=== PATIENT | male | born 1970 | race Caucasian/White ===

== ENCOUNTER 2017-01-29 09:09 | Emergency (ER) | payer BC ==
--- NOTE | 2017-01-29 09:26 | EDM.PDOC ---
ED HPI GENERAL MEDICAL PROBLEM - General Chief Complaint: Genitourinary Problem Stated Complaint: STD Time Seen by Provider: 01/29/17 09:11 Source of Information: Reports: Patient History Limitations: Reports: No Limitations - History of Present Illness INITIAL COMMENTS - FREE TEXT/NARRATIVE: HISTORY AND PHYSICAL: History of present illness: [46-year-old male presents to the emergency department complaining of penile drainage. Patient has been sexually active recently without protection. He is now proceeding some discomfort with urination and a purulent drainage. Denies testicular pain or scrotal swelling. No groin pain bilaterally and no pain behind the scrotum. No fevers chills sweats or shaking chills. Patient has no joint pain or other complaints Review of systems: As per history of present illness and below otherwise all systems reviewed and negative. Past medical history: As per history of present illness and as reviewed below otherwise noncontributory. Surgical history: As per history of present illness and as reviewed below otherwise noncontributory. Social history: No reported history of drug or alcohol abuse. Family history: As per history of present illness and as reviewed below otherwise noncontributory. Physical exam: HEENT: Normocephalic, atraumatic, pupils normal and symmetrical, supple neck, no meningismus, normal color Lungs: Normal and symmetrical chest wall excursion bilateral with no tachypnea or increased work of breathing, grossly normal chest exam Heart: No tachycardia in triage Abdomen: Normal-appearing, nondistended, no visible mass or asymmetry Pelvis: Normal-appearing Genitourinary: Normal-appearing penis and scrotum. Normal scrotum and contents with no mass or swelling. No inguinal adenopathy. Nontender perineum. Small amount of purulent discharge from meatus. No suprapubic tenderness. No CVA tenderness Rectal exam: Deferred Extremities: Atraumatic, normal use and range of motion, no visible evidence of gross neurovascular compromise Neuro: Awake, alert, oriented. Normal and appropriate mental status. Cranial nerves grossly unremarkable. Motor function normal. Nonfocal neurologic exam. Diagnostics: [] Therapeutics: [Rocephin IM and Zithromax by mouth] Impression: [STD] Plan: [Signs and symptoms consistent with uncomplicated STD in an adult male. No systemic symptoms. Treatment administered. Patient aware to follow-up with health department for reevaluation and further STD testing including syphilis and HIV as needed. Use barrier protection and follow-up with his PCP. No further workup or treatment indicated at this time patient agrees with outpatient follow-up and Strict return precautions given] Definitive disposition and diagnosis as appropriate pending reevaluation and review of above. scrotum Pain Score (Numeric/FACES): 1 - Related Data Allergies Allergy/AdvReac Type Severity Reaction Status Date / Time NSAIDS (Non-Steroidal Allergy Facial Verified 01/29/17 09:24 Anti-Inflamma Swelling Home Meds: Home Meds . [No Known Home Meds] 07/09/16 [History] Past Medical History Cardiovascular History: Reports: Hypertension Musculoskeletal History: Reports: Back Pain, Chronic, Fracture, Other (See Below ) Other Musculoskeletal History: hx bulging disc in back - Past Surgical History Musculoskeletal Surgical History: Reports: Other (See Below) Social & Family History - Family History Cardiac: Reports: [place] - Tobacco Use Smoking Status *Q: Never Smoker Second Hand Smoke Exposure: No - Recreational Drug Use Recreational Drug Use: No ED ROS GENERAL - Review of Systems Review Of Systems: See Below (History of present illness) ED EXAM, GENERAL - Physical Exam Exam: See Below (History of present illness) Course - Vital Signs Last Recorded V/S: Last Vital Signs Temp 36.2 C 01/29/17 09:25 Pulse 90 01/29/17 10:52 Resp 18 01/29/17 10:52 BP 165/100 H 01/29/17 10:52 Pulse Ox 95 01/29/17 10:52 - Orders/Labs/Meds Meds: Medications Discontinued Medications Generic Name Dose Route Start Last Admin Trade Name Makenna PRN Reason Stop Dose Admin Azithromycin 1,000 mg 01/29/17 09:59 01/29/17 10:10 Zithromax PO 01/29/17 10:00 1,000 mg Q24H ONE Administration Ceftriaxone Sodium 250 mg/ 1 mls @ 1 mls/sec 01/29/17 10:00 01/29/17 10:09 Lidocaine HCl IM 01/29/17 10:01 1 mls/sec ONETIME ONE Administration Departure - Departure Time of Disposition: 10:44 Disposition: Home, Self-Care 01 Condition: Good Clinical Impression: STD (male), Urethritis - Discharge Information Instructions: Sexually Transmitted Disease, [id number] Referrals: PCP,None [Primary Care Provider] - Forms: ED Department Discharge Additional Instructions: Having a penile discharge after having unprotected sex indicates that you have a sexually transmitted disease. You've been treated completely for gonorrhea and chlamydia. Follow-up with the health department for any further testing such as HIV or syphilis. If you're going to be sexually active use barrier protection such as a condom. This is not a guarantee of protection but it is the best protection possible for sexually active person. It still possible to have condom failure or to get herpes or genital warts from skin contact in the genital area. Notify any partners that they need to be treated as well and be careful not to be sexually active with him prior to them being appropriately treated also. Follow-up with your doctor in 2 days and return immediately for new severe or worsening symptoms
[2017-01-29] MEDS ORDERED: Azithromycin 250 MG Tab PO ONE (09:59)
[2017-01-29] MEDS ORDERED: cefTRIAXone 250 MG in Lidocaine 1% 1 ML IM ONE (10:00)
[2017-01-29 10:54] VITALS: BP 165/100
== END 2017-01-29 10:52 | disposition home or self-care (01) ==
LOC: MW.ED 09:09
DX: A64 Unspecified sexually transmitted disease (principal); N34.2 Other urethritis; I10 Essential (primary) hypertension; Z88.8 Allergy status to other drugs, medicaments and biological substances
CPT/HCPCS: 96372; 99283; A9270; J0696; 99282

== ENCOUNTER 2018-01-19 10:48 | Emergency (ER) | payer SELFPAY ==
--- NOTE | 2018-01-19 12:14 | EDM.PDOC ---
ED HPI GENERAL MEDICAL PROBLEM - General Chief Complaint: Gastrointestinal Problem Stated Complaint: ANAL BLEEDING Time Seen by Provider: 01/19/18 11:51 Source of Information: Reports: Patient History Limitations: Reports: No Limitations - History of Present Illness INITIAL COMMENTS - FREE TEXT/NARRATIVE: History of present illness: []Patient has a bleeding hemorrhoid. He complains of minimal pain, no abdominal pain or constipation, fevers or chills. Review of systems: As per history of present illness and below otherwise all systems reviewed and negative. Past medical history: As per history of present illness and as reviewed below otherwise noncontributory. Surgical history: As per history of present illness and as reviewed below otherwise noncontributory. Social history: No reported history of drug or alcohol abuse. Family history: As per history of present illness and as reviewed below otherwise noncontributory. Physical exam: General: Well developed, well nourished in NAD HEENT: Atraumatic, normocephalic, pupils reactive, negative for conjunctival pallor or scleral icterus, mucous membranes moist, throat clear, neck supple, nontender, trachea midline. Lungs: Clear to auscultation, breath sounds equal bilaterally, chest nontender. Heart: S1S2, regular, negative for clicks, rubs, or JVD. Abdomen: Soft, nondistended, nontender. Negative for masses or hepatosplenomegaly. Negative for costovertebral tenderness. Pelvis: Stable nontender. Genitourinary: Deferred. Rectal: Tender firm external hemorrhoid with mild oozing Extremities: Atraumatic, negative for cords or calf pain. Neurovascular unremarkable. Neuro: Awake, alert, oriented. Cranial nerves II through XII unremarkable. Cerebellum unremarkable. Motor and sensory unremarkable throughout. Exam nonfocal. Diagnostics: []ABC within normal limits Therapeutics: []She declined pain medication Impression: []External hemorrhoid Plan: []Sitz baths, stool softeners and follow up with general surgery Definitive disposition and diagnosis as appropriate pending reevaluation and review of above. - Related Data Allergies Allergy/AdvReac Type Severity Reaction Status Date / Time NSAIDS (Non-Steroidal Allergy Facial Verified 01/19/18 11:01 Anti-Inflamma Swelling Home Meds: Home Meds Esomeprazole [NexIUM] 40 mg PO DAILY 01/19/18 [History] FLUoxetine HCl [Prozac] 20 mg PO DAILY 01/19/18 [History] Non-Formulary Medication [NF Drug] 01/19/18 [History] Non-Formulary Medication [NF Drug] 01/19/18 [History] Past Medical History - Past Health History Medical/Surgical History: Denies Medical/Surgical History Cardiovascular History: Reports: Hypertension Musculoskeletal History: Reports: Back Pain, Chronic, Fracture, Other (See Below ) Other Musculoskeletal History: hx bulging disc in back Psychiatric History: Reports: Depression - Infectious Disease History Infectious Disease History: Reports: Chicken Pox - Past Surgical History GI Surgical History: Reports: Appendectomy Musculoskeletal Surgical History: Reports: Other (See Below) Social & Family History - Family History Family Medical History: Noncontributory Cardiac: Reports: [place] - Tobacco Use Smoking Status *Q: Never Smoker - Caffeine Use Caffeine Use: Reports: Tea - Alcohol Use Days Per Week of Alcohol Use: 2 Number of Drinks Per Day: 4 Total Drinks Per Week: 8 - Recreational Drug Use Recreational Drug Use: No ED ROS GENERAL - Review of Systems Review Of Systems: ROS reveals no pertinent complaints other than HPI. ED EXAM, GI/ABD - Physical Exam Exam: See Below (See history of present illness) Course - Vital Signs Last Recorded V/S: Last Vital Signs Temp 97.2 F 01/19/18 11:04 Pulse 76 01/19/18 11:04 Resp 18 01/19/18 11:04 BP 127/82 01/19/18 11:04 Pulse Ox 100 01/19/18 11:04 - Orders/Labs/Meds Labs: Laboratory Tests 01/19/18 Range/Units 13:03 WBC 3.42 L (4.0-11.0) K/uL RBC 5.10 (4.50-5.90) M/uL Hgb 16.2 (13.0-17.0) g/dL Hct 45.5 (38.0-50.0) % MCV 89.2 (80.0-98.0) fL MCH 31.8 (27.0-32.0) pg MCHC 35.6 (31.0-37.0) g/dL RDW Std Deviation 54.2 (28.0-62.0) fl RDW Coeff of [place] 17 H (11.0-15.0) % Plt Count 107 L (150-400) K/uL MPV 9.40 (7.40-12.00) fL Neut % (Auto) 54.6 (48.0-80.0) % Lymph % (Auto) 28.4 (16.0-40.0) % Coles % (Auto) 11.7 (0.0-15.0) % Eos % (Auto) 4.4 (0.0-7.0) % Baso % (Auto) 0.9 (0.0-1.5) % Neut # (Auto) 1.9 (1.4-5.7) K/uL Lymph # (Auto) 1.0 (0.6-2.4) K/uL Coles # (Auto) 0.4 (0.0-0.8) K/uL Eos # (Auto) 0.2 (0.0-0.7) K/uL Baso # (Auto) 0.0 (0.0-0.1) K/uL Nucleated RBC % 0.0 /100WBC Nucleated RBCs # 0 K/uL Departure - Departure Time of Disposition: 13:22 Disposition: Home, Self-Care 01 Condition: Good Clinical Impression: External hemorrhoid, bleeding - Discharge Information *PRESCRIPTION DRUG MONITORING PROGRAM REVIEWED*: Not Applicable Referrals: PCP,None [Primary Care Provider] - Jayna Amor MD [Physician] - (Next available) Forms: ED Department Discharge Additional Instructions: The following information is given to patients seen in the emergency department who are being discharged to home. This information is to outline your options for follow-up care. We provide all patients seen in our emergency department with a follow-up referral. The need for follow-up, as well as the timing and circumstances, are variable depending upon the specifics of your emergency department visit. If you don't have a primary care physician on staff, we will provide you with a referral. We always advise you to contact your personal physician following an emergency department visit to inform them of the circumstance of the visit and for follow-up with them and/or the need for any referrals to a consulting specialist. The emergency department will also refer you to a specialist when appropriate. This referral assures that you have the opportunity for follow-up care with a specialist. All of these measure are taken in an effort to provide you with optimal care, which includes your follow-up. Under all circumstances we always encourage you to contact your private physician who remains a resource for coordinating your care. When calling for follow-up care, please make the office aware that this follow-up is from your recent emergency room visit. If for any reason you are refused follow-up, please contact the [facility] at and asked to speak to the emergency department charge nurse. Sitz baths, stool softeners, follow-up with general surgery [facility] - General [facility] Professional Building [address] [place] [address], [address] [place] [address]
[2018-01-19 13:59] VITALS: BP 158/96
== END 2018-01-19 13:45 | disposition home or self-care (01) ==
LOC: MW.ED 10:48
DX: K64.4 Residual hemorrhoidal skin tags (principal); I10 Essential (primary) hypertension; F32.9 Major depressive disorder, single episode, unspecified; Z88.6 Allergy status to analgesic agent; Z79.899 Other long term (current) drug therapy; Z90.49 Acquired absence of other specified parts of digestive tract
CPT/HCPCS: 36415; 85025; 99283